=== PATIENT | female | born 1930 | race Caucasian/White ===

== ENCOUNTER → 2017-11-21 | Outpatient (CLI) | payer OTHER ==
[~2017-11-21] MED LIST: ASCO500 PO; ASPI325 PO; ASPI325EC PO; Advair Hfa 115-12 GM INH; Ativan0.5 MG SL; CALCA400CH PO; CALCAVITD PO; CARV25 PO; CLOP75 PO; DIAZ5 PO; DIPATR PO; DULERA 200 MCG/13 GM INH; Dyazide 37.5-21 EACH PO; ENOX40I SC; ERGO400 PO; Estrace Vagin42.5 GM TOP; FENO160 PO; FISH1000 PO; GLUC500 PO; Hair, Skin & N1 EACH PO; Lipitor20 MG PO; MULVITMIND PO; OPTIFLEX-C400 MG PO; Omeprazole20 M1 PO; PROACE100; PROM25 PO; ROXICODONE5 MG PO; SYNTHROID25 MCG PO; Synthroid/Le0.075 MG PO; TRIHYD253B PO; TYLENOL PM PO; UBID10 PO; [UNRECOGNIZED DRUG - CODE]
== END | disposition home or self-care (01) ==
LOC: PLD 08:45 → LAB SHORT 08:45
DX: D04.72 Carcinoma in situ of skin of left lower limb, including hip (principal)
CPT/HCPCS: 88305

== ENCOUNTER → 2018-06-26 | Outpatient (CLI) | payer OTHER | END | disposition home or self-care (01) | LOC: PLD 07:49 → LAB SHORT 07:49 | DX: D04.5 Carcinoma in situ of skin of trunk (principal) | CPT/HCPCS: 88305 ==

== ENCOUNTER 2018-10-12 08:48 | Emergency (ER) | payer OTHER ==
[~2018-10-12] VITALS: Ht 165.1 cm; Wt 56.7 kg
== END 2018-10-12 11:20 | disposition home or self-care (01) ==
LOC: ER 08:48
DX: S20.212A Contusion of left front wall of thorax, initial encounter (principal); W18.2XXA Fall in (into) shower or empty bathtub, initial encounter; Z79.899 Other long term (current) drug therapy; I10 Essential (primary) hypertension; Z87.891 Personal history of nicotine dependence
CPT/HCPCS: 71101; 99283-25

== ENCOUNTER 2018-10-17 12:44 | Day surgery (SDC) | payer OTHER ==
[~2018-10-17] VITALS: Ht 165.1 cm; Wt 55.8 kg
[2018-10-17] MEDS ORDERED: ATOR80 PO (13:57)
[2018-10-17] MEDS ORDERED: AMLO5 PO (13:59)
== END 2018-10-17 15:18 | disposition home or self-care (01) ==
LOC: ORSCSDS 12:44
PROVIDERS: Internal Medicine Gastroenterology
PROC: 0DB58ZX Excision of Esophagus, Via Natural or Artificial Opening Endoscopic, Diagnostic (ICD-10-PCS; principal; 2018-10-17 14:45)
PROC: 0DB68ZX Excision of Stomach, Via Natural or Artificial Opening Endoscopic, Diagnostic (ICD-10-PCS; principal; 2018-10-17 14:45)
PROC: 0D757ZZ Dilation of Esophagus, Via Natural or Artificial Opening (ICD-10-PCS; principal; 2018-10-17 14:45)
DX: R13.10 Dysphagia, unspecified (principal); R93.89 Abnormal findings on diagnostic imaging of other specified body structures; R11.0 Nausea; K31.7 Polyp of stomach and duodenum; K29.70 Gastritis, unspecified, without bleeding; K22.2 Esophageal obstruction; I10 Essential (primary) hypertension; E78.5 Hyperlipidemia, unspecified; K21.9 Gastro-esophageal reflux disease without esophagitis; E03.9 Hypothyroidism, unspecified; F17.210 Nicotine dependence, cigarettes, uncomplicated; Z79.82 Long term (current) use of aspirin; Z79.899 Other long term (current) drug therapy
CPT/HCPCS: 88305; 88342; J2704; J7120

== ENCOUNTER → 2019-02-05 | Outpatient (CLI) | payer OTHER ==
[~2019-02-05] MED LIST changes: +AMLO5 PO; +ATOR80 PO
[2019-02-05 17:49] LABS: Source, Urine Catheter
[2019-02-05 18:34] LABS: Appearance, Urine Hazy (Clear); Bilirubin, Urine Neg (Neg); Blood, Urine 2+ (Neg); Color, Urine Yellow (P-Yellow); Glucose Qualitative, Urine Neg (Neg); Ketones, Urine Neg (Neg); Leukocyte Esterase, Urine 3+ (Neg); Nitrite, Urine Neg (Neg); Protein, Urine 1+ (Neg); Specific Gravity, Urine 1.005 (1.003-1.022); Urobilinogen, Urine NORM (Normal)
[2019-02-05 18:53] LABS: White Blood Cells, Urine TNTC /hpf (0-5)
[2019-02-05 18:54] LABS: Bacteria Many /hpf; Squamous Epithelial Cells Not Seen /hpf (Few)
== END | disposition home or self-care (01) ==
LOC: LAB 14:39 → LAB SHORT 14:39
PROVIDERS: Nurse Practitioner Women's Health
DX: R39.198 Other difficulties with micturition (principal); R10.2 Pelvic and perineal pain
CPT/HCPCS: 81001; 87077; 87086; 87186

== ENCOUNTER → 2019-11-06 | Outpatient (CLI) | payer OTHER | END | disposition home or self-care (01) | LOC: PLD 14:38 → LAB SHORT 14:38 | DX: C44.729 Squamous cell carcinoma of skin of left lower limb, including hip (principal); C44.719 Basal cell carcinoma of skin of left lower limb, including hip | CPT/HCPCS: 88305 ==

== ENCOUNTER → 2019-12-09 | Outpatient (CLI) | payer OTHER | LOC: LAB SHORT 08:02 → PLD 08:02 | DX: C44.712 Basal cell carcinoma of skin of right lower limb, including hip (principal) | CPT/HCPCS: 88305 ==

== ENCOUNTER 2020-05-27 06:24 | Day surgery (SDC) | payer OTHER ==
[~2020-05-27] VITALS: Ht 162.6 cm; Wt 54.4 kg
[~2020-05-27 06:24] MED LIST changes: +Amlodipine Bes2.5 MG PO; +Aspir 8181 MG PO; +OMEP20ER PO; +Ranitidine HCl150 M1 PO
[2020-05-27] MEDS ORDERED: XARELTO10 M1 (07:13)
--- NOTE | 2020-05-27 09:07 | NUR ---
05/27/20 0907 IRINEO SHAH PT TO STEP DOWN, REPORTS SORE THROAT THAT IS IMPROVING, TOLERATING LIQUIDS. DENIES NAUSEA OR SIGNIFICANT PAIN. IV DC'D. ENGAGED IN DC TEACHING AND ALL QUESTIONS ASKED AND ANSWERED. PT ESCORTED TO AWAITING FAMILY
== END 2020-05-27 09:06 | disposition home or self-care (01) ==
LOC: ORSCSDS 06:24
PROVIDERS: Otolaryngology
PROC: 0CJS8ZZ Inspection of Larynx, Via Natural or Artificial Opening Endoscopic (ICD-10-PCS; principal; 2020-05-27 07:30)
DX: R49.0 Dysphonia (principal); D49.1 Neoplasm of unspecified behavior of respiratory system; I10 Essential (primary) hypertension; K21.9 Gastro-esophageal reflux disease without esophagitis; J44.9 Chronic obstructive pulmonary disease, unspecified; Z87.891 Personal history of nicotine dependence; E03.9 Hypothyroidism, unspecified; Z79.899 Other long term (current) drug therapy; Z79.01 Long term (current) use of anticoagulants
CPT/HCPCS: A9270; J0171; J1100; J2310; J2405; J2704; J3010; J7120